=== PATIENT | female | born 1985 | race American Indian/Alaskan Native ===

== ENCOUNTER 2019-02-20 00:51 | Inpatient (IN) | payer BC, OTHER ==
[2019-02-20] MEDS ORDERED: MINERAL OIL PO PRN (01:19)
[2019-02-20] MEDS ORDERED: BRETHINE IVP PRN (01:19)
[2019-02-20] MEDS ORDERED: XYLOCAINE 2% INFILTRATI ONE (01:19)
[2019-02-20] MEDS ORDERED: BRETHINE SUB-Q PRN (01:19)
[2019-02-20] MEDS ORDERED: STADOL IV PRN (01:19)
[2019-02-20] MEDS ORDERED: NARCAN 0.4 MG/1 ML IV PRN (01:19)
[2019-02-20] MEDS ORDERED: ZOFRAN IV PRN (01:19)
[2019-02-20] MEDS ORDERED: LACTATED RINGERS 1,000 ML ONE (01:20)
[2019-02-20] MEDS ORDERED: STADOL ONE (01:20)
--- NOTE | 2019-02-20 01:51 | History and Physical Report ---
History of Present Illness Date of examination: 02/20/19 Date of admission: 02/20/19 01:04 Chief complaint: Intense Labor Pains History of present illness: Early enrty to care, course complicated by Anemia and Vitamin D Deficiency. Abnormal Quad screen followed by Low Risk Panorama; Abnormal 1 hour GTT followed by normal 3 hour GTT. Past History Past Medical History: asthma, hematologic disorders (Anemia) Past Surgical History: other (colposcopy) DIETARY TECH History: abnormal PAP smear, herpes, trichomonas Family/Genetic History: diabetes, hypertension, cancer Social history: single, smoking (1/2 Pack Daily) - Obstetrical History Expected Date of Delivery: 02/22/19 Actual Gestation: 39 Week(s) 5 Day(s) : 6 Para: 4 Hx # Term Pregnancies: 4 Induced : 1 Number of Living Children: 3 #1 Gender: Female year: 2,000 Birthweight: 2.807 kg Method of Delivery: Vaginal Gestational age at delivery: 40 Complications: none #2 Infant Gender: Male year: 2,[birth year] Birthweight: 2.608 kg Method of Delivery: Vaginal Gestational age at delivery: 40 Complications: none #3 Gender: Male year: 2,006 Birthweight: 3.175 kg Method of Delivery: Vaginal Gestational age at delivery: 40 Complications: other (Anencephalus; lived 2 hour after delivery) #4 Gender: Male year: 2,012 Birthweight: 3.289 kg Method of Delivery: Vaginal Gestational age at delivery: 39 Complications: none Medications and Allergies Allergies Allergy/AdvReac Type Severity Reaction Status Date / Time No Known Allergies Allergy Verified 02/20/19 01:46 Active Meds: Active Medications Butorphanol Tartrate (Stadol) 2 mg IV Q2H PRN PRN Reason: Pain , Severe (7-10) Ephedrine Sulfate (Ephedrine Sulfate) 10 mg IV Q2M PRN PRN Reason: Hypotension Lactated Ringer's (Lactated Ringers) 1,000 mls @ 125 mls/hr IV DIRECT NIRAV Oxytocin/Sodium Chloride (Pitocin/Ns 20 Unit/1000ml Drip) 20 units in 1,000 mls @ 125 mls/hr IV DIRECT NIRAV Oxytocin/Sodium Chloride (Pitocin/Ns 30 Unit/500ml) 30 units in 500 mls @ 2 mls/hr IV TITR NIRAV; Protocol Lidocaine (Xylocaine 2%) 20 ml INFILTRATI ONCE ONE Stop: 02/20/19 01:20 Mineral Oil (Mineral Oil) 30 ml PO QHS PRN PRN Reason: Constipation Naloxone HCl (Narcan 0.4 Mg/1 Ml) 0.1 mg IV Q2MIN PRN PRN Reason: Res Rate </= 8 or 02 SAT < 92% Ondansetron HCl (Zofran) 4 mg IV Q8H PRN PRN Reason: Nausea And Vomiting Terbutaline Sulfate (Brethine) 0.25 mg SUB-Q ONCE PRN PRN Reason: Hyperstimulation/Hypertonicity Terbutaline Sulfate (Brethine) 0.25 mg IVP ONCE PRN PRN Reason: Hyperstimulation/Hypertonicity Review of Systems All systems: negative - Physical Exam Breasts: Positive: normal Cardiovascular: Regular rate Lungs: Positive: Clear to auscultation, Normal air movement Abdomen: Positive: normal appearance, soft, normal bowel sounds Genitourinary (Female): Positive: normal external genitalia, normal perenium Vagina: Positive: normal moisture Uterus: Positive: enlarged Anus/Rectum: Positive: normal perianal skin Extremities: Positive: normal - Obstetrical FHR: category 1 Uterine Contraction Monitor Mode: External Cervical Dilatation: 7 (Large amount of clear fluid upon AROM at 0133) Cervical Effacement Percentage: 80 station: -1 Uterine Contraction Pattern: Regular Uterine Tone Measurement Phase: Resting Uterine Contraction Intensity: Moderate Results All other labs normal. Assessment and Plan A: IUP @ 39 5/7 Weeks Category I Tracing Active Labor Suspected Macrosomia GBS Negative P: Admit to L&D per Routine Orders AROM Pitocin Augmentation
[2019-02-20] MEDS ORDERED: PITOCin/NS 30 UNIT/500ML 30 UNITS/500 ML BAG IV SCH (02:00)
[2019-02-20] MEDS ORDERED: PITOCin/NS 20 UNIT/1000ML DRIP 20 UNITS/1,000 ML BAG IV SCH (02:00)
[2019-02-20] MEDS ORDERED: LACTATED RINGERS 1,000 ML IV SCH (02:00)
[2019-02-20 02:36] LABS: Hematocrit 37.7 % (30.3-42.9); Hemoglobin 12.4 gm/dl (10.1-14.3); Mean Corpuscular HGB Conc 33 % (30-34); Mean Corpuscular Volume 93 fl (79-97); Platelet Count 183 K/mm3 (140-440); Red Blood Count 4.04 M/mm3 (3.65-5.03); Red Cell Distribution Width 14.1 % (13.2-15.2)
[2019-02-20] MEDS ORDERED: CYTOTEC ONE (02:48)
[2019-02-20] MEDS ORDERED: BENADRYL PO PRN (03:06)
--- NOTE | 2019-02-20 03:13 | Procedure Note ---
OB Delivery Note - Delivery Date of Delivery: 02/20/19 (0245) Surgeon: JOHANNA GARCIA Estimated blood loss: 200cc - Vaginal Delivery presentation: vertex Delivery position: OA Intrapartum events: none Delivery induction: none Delivery augmentation: rupture of membranes, pitocin Delivery monitor: external FHT, external uterine Route of delivery: Delivery placenta: spontaneous Delivery cord: 3 umbilical vessels Episiotomy: none Delivery laceration: none Anesthesia: none Delivery comments: of a live 8'9 male infant over a intact perineum under IV pain control with Apgars of 8 and 9 at 0245 on 02/20/2019. directly to maternal abd/chest, skin to skin contact. Spontaneous delivery of placenta complete and intact with Martin side presenting at 0248. 1000U of Cytotec placed per rectum. Fundus is firm and midline located 4 below the U. Lochia is scant. Delayed cord clamping and cutting; Cord cut by the Father of the Baby. Cord blood collected. Placenta to pathology. - A at 1 minute: 8 at 5 minutes: 9 Infant Gender: Male (8'9)
[2019-02-20] MEDS ORDERED: SODIUM CHLORIDE FLUSH SYRINGE 10 ML IV NR (04:00)
[2019-02-20] MEDS: IBUPROFEN PO SCH ×3 (04:50→21:36)
[2019-02-20] MEDS: NORCO 5/325 PO PRN ×3 (04:50→20:01)
[2019-02-20] MEDS ORDERED: CYTOTEC PR ONE (06:57)
[2019-02-20 15:10] LABS: Hematocrit 34.8 % (30.3-42.9); Hemoglobin 11.2 gm/dl (10.1-14.3)
[2019-02-21] MEDS: NORCO 5/325 PO PRN ×4 (01:19→21:29)
[2019-02-21] MEDS: IBUPROFEN PO SCH ×5 (03:23→23:22)
--- NOTE | 2019-02-21 10:55 | Progress Note ---
Assessment and Plan A: PPD#1 s/p Stable Desires Depo Provera P: Continue routine PP orders Depo Provera 150mg IM x1 Discharge home in am Subjective - Subjective Date of service: 02/21/19 Principal diagnosis: PPD#1 s/p Interval history: See H&P and Delivery note Patient reports: appetite normal, voiding normally, pain well controlled, flatus, ambulating normally, no bowel movement : doing well (Under Star lights), nursing well Objective - Vital Signs Latest vital signs: Vital Signs Temp Pulse Resp BP BP Pulse Ox 02/21/19 07:59 98.2 F 75 16 127/88 98 02/21/19 03:23 18 02/21/19 01:19 18 02/21/19 00:33 98.0 F 86 20 120/75 97 02/20/19 21:36 18 02/20/19 20:01 18 02/20/19 16:23 98.7 F 86 18 122/79 99 02/20/19 14:42 16 02/20/19 12:41 97.4 F L 85 18 137/83 99 Intake and Output 02/20/19 02/21/19 02/21/19 23:59 07:59 15:59 Intake Total 480 240 Balance 480 240 Intake: Oral 480 240 Other: Intake, Other Source Saline Solution Total, Intake Amount 480 240 # Voids Void 1 1 - Exam Breasts: Present: normal, Cardiovascular: Present: Regular rate, Normal S1, Normal S2, No murmurs Lungs: Present: Clear to auscultation, Normal air movement Abdomen: Present: normal appearance, soft, normal bowel sounds. Absent: distention Vulva: both: normal Uterus: Present: firm, fundal height at umbilicus Extremities: Present: normal Deep Tendon Reflex Grade: Normal +2
--- NOTE | 2019-02-21 10:58 | Discharge Summary ---
Providers - Providers Date of Admission: 02/20/19 01:04 Date of discharge: 02/22/19 Attending physician: MAURA NUR MD Primary care physician: MAURA NUR MD Hospitalization Reason for admission: active labor Delivery: Procedure details: See delivery note Episiotomy: none Laceration: none complications: none Discharge diagnosis: IUP at term delivered [place] baby: male Condition at discharge: Good Disposition: DC-01 TO HOME OR SELFCARE Plan - Provider Discharge Summary Activity: routine, no sex for 6 weeks, no heavy lifting 4 weeks, no strenuous exercise Diet: routine Instructions: routine Additional instructions: [] Smoking cessation referral if applicable(refer to patient education folder for contact #) [] Refer to [facility] Booklet Call your doctor immediately for: * Fever > 100.5 * Heavy vaginal bleeding ( >1 pad per hour) * Severe persistent headache * Shortness of breath * Reddened, hot, painful area to leg or breast * Drainage or odor from incision. * Keep incision clean and dry at all times and follow doctor's instructions regarding bathing/showering Depo Provera given in hospital. Pt desires Tubal ligation. Pt instructed to return to office for tubal consent/pre-op - Follow up plan Follow up: MAURA NUR MD [Primary Care Provider] - 6 Weeks
[2019-02-21] MEDS ORDERED: DEPO-PROVERA (CONTRACEPTION) IM ONE (12:11)
[2019-02-22] MEDS: NORCO 5/325 PO PRN ×2 (03:07→07:59)
[2019-02-22] MEDS: IBUPROFEN PO SCH (05:07)
[2019-02-22 09:22] VITALS: BP 130/89
[2019-02-22] MEDS ORDERED: DEPO-PROVERA (CONTRACEPTION) IM ONE ×2 (13:09)
== END 2019-02-22 16:24 | disposition home or self-care (01) | DRG 775 ==
LOC: TRG 00:51 → LD 01:04 → OB 04:21 → UNDODISIN 02-22 13:22
PROVIDERS: ADMIT Obstetrics & Gynecology; ATTEND Obstetrics & Gynecology
PROC: 10E0XZZ Delivery of Products of Conception, External Approach (ICD-10-PCS; principal; 2019-02-20)
PROC: 10907ZC Drainage of Amniotic Fluid, Therapeutic from Products of Conception, Via Natural or Artificial Opening (ICD-10-PCS; 2019-02-20)
DX: O99.52 Diseases of the respiratory system complicating childbirth (principal); O99.02 Anemia complicating childbirth; D64.9 Anemia, unspecified; O99.334 Smoking (tobacco) complicating childbirth; Z83.3 Family history of diabetes mellitus; Z3A.39 39 weeks gestation of pregnancy; Z37.0 Single live birth; Z82.49 Family history of ischemic heart disease and other diseases of the circulatory system
CPT/HCPCS: 36415; 85014; 85018; 85027; 86592; 86850; 86900; 86901; 88307; G0378; J0595; J1050; J2590; J7120